=== PATIENT | male | born 1990 | race Two or more races ===

== ENCOUNTER 2023-10-04 11:41 | Emergency (ER) | payer SELFPAY ==
[~2023-10-04] VITALS: Ht 177.8 cm; Wt 88.0 kg
[2023-10-04 12:01] VITALS: BP 132/74; TEMP 98.6; O2SAT 98
[2023-10-04] MEDS ORDERED: FAMO20TA8 PO (12:50)
[2023-10-04] MEDS ORDERED: PANT40TA49 PO (12:50)
[2023-10-04] MEDS ORDERED: ONDA4TAB5 PO (12:50)
[2023-10-04] MEDS ORDERED: ACETAMINOPHEN 325 MG TABLET ONE (13:02)
[2023-10-04] MEDS: ACETAMINOPHEN 325 MG TABLET PO ONE (13:04)
== END 2023-10-04 13:31 | disposition home or self-care (01) ==
LOC: ER 12:16
DX: R51.9 Headache, unspecified (principal); R11.0 Nausea; Z79.899 Other long term (current) drug therapy; Z88.1 Allergy status to other antibiotic agents